=== PATIENT | male | born 2000 | race Caucasian/White ===

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

== ENCOUNTER 2023-03-13 13:14 | Emergency (ER) | payer OTHER ==
[2023-03-13 13:23] VITALS: BP 146/78
[2023-03-13 13:49] LABS: RAPID STREP SCREEN Negative (Negative)
--- NOTE | 2023-03-13 14:36 | ED Physician Documentation ---
History of Present Illness - Stated complaint Stated Complaint: SORE THROAT - Chief complaint Chief Complaint: Heent - Additonal information Additional information: Patient 23-year-old male presenting to the emergency department with fever and sore throat. Symptoms ongoing for the last few days. Endorses for painful swallowing. Denies known sick contacts, cough, chest pain, shortness of breath. Review of Systems Constitutional: reports: Fever Ears: denies: Loss of hearing Throat: reports: Sore throat Respiratory: denies: Dyspnea GI: denies: Abdominal Pain : denies: Dysuria PD PAST MEDICAL HISTORY - Past Surgical History Past Surgical History: No - Present Medications Home Medications: Ambulatory Orders Medication Instructions Recorded Confirmed Clindamycin HCl [Clindamycin 300MG 300 mg PO Q6H #28 capsule 12/30/18 CAP] HYDROcod/ACETAM 5/325 [[place] 5/325] 1 - 2 ea PO Q6H PRN #12 tablet 12/30/18 HYDROcod/ACETAM 5/325 [[place] 5/325] 1 - 2 ea PO Q6H PRN #14 tablet 03/13/23 Menthol [[place]] 7.5 mg MM Q6HR #30 lozenge 03/13/23 - Allergies Allergies/Adverse Reactions: Allergies Allergy/AdvReac Type Severity Reaction Status Date / Time No Known Drug Allergies Allergy Verified 03/13/23 13:23 - Social History Does the pt smoke?: No Smoking Status: Never smoker Does the pt drink ETOH?: No Does the pt have substance abuse?: No - Immunizations Immunizations are current?: Yes - POLST Patient has POLST: No PD ED PE NORMAL - General General: Alert and oriented X 3 - HEENT HEENT: Atraumatic, Other (Enlarged erythematous tonsils with exudates) - Neck Neck: Supple, no meningeal sign - Cardiac Cardiac: RRR - Respiratory Respiratory: No respiratory distress - Abdomen Abdomen: Normal bowel sounds - Male Male : Deferred - Rectal Rectal: Deferred - Back Back: No CVA TTP Results - Vitals Vitals: Oxygen O2 Source Room air - Labs Labs: Microbiology 03/13/23 13:24 Group A Strep Throat Culture - Final Throat MIXED OROPHARYNGEAL MARIANELA PRESENT. NO BETA STREP PRESENT IN CULTURE. Laboratory Tests 03/13/23 13:24 Group A Strep Rapid Negative PD Medical Decision Making - ED course Complexity details: reviewed results, d/w patient ED course: Patient is 23-year-old male presenting to the emergency department with sore throat. Afebrile, hemodynamically stable. Patient appears uncomfortable. Physical exam demonstrates enlarged tonsils with exudates but no appreciable posterior cervical adenopathy, jugular adenopathy, uvular deviation, sublingual elevation or tracheal immobility that would be of imminent concern for deep space neck infection. Mononucleosis is considered as part of the differential and I discussed this with the patient and we discussed blood testing however he would like to avoid this at this time. Encouraged that he avoid strenuous sport or other such activity for at least the next 2 to 4 weeks. Strep pharyngitis swab is negative. He was given dose Decadron in the emergency department as well as a single IM dose morphine for pain control. I have sent medication for pain control to his preferred pharmacy. He was encouraged to follow-up carefully with his primary care doctor or return to the emergency department as needed. Departure - Departure Disposition: 01 Home, Self Care Clinical Impression: Pharyngitis Qualifiers: Pharyngitis/tonsillitis etiology: unspecified etiology Qualified Code(s): J02.9 - Acute pharyngitis, unspecified Prescriptions: Menthol [[place]] 7.5 mg MM Q6HR #30 lozenge HYDROcod/ACETAM 5/325 [[place] 5/325] 1 - 2 ea PO Q6H PRN #14 tablet PRN Reason: Pain Comments: Thank you for allowing us to care for you today at [facility]. Your strep pharyngitis screening swab was negative. As we discussed I will be sending your throat swab for culture and if it does demonstrate bacterial infection we will contact you directly at home to begin antibiotics in the next 1 to 2 days. You Or given a dose of Decadron here in the emergency department help with your sore throat. I have sent a prescription for Vicodin as well as oral throat lozenges to [facility] in [place]. Please use these as directed. Please drink plenty of fluids. This can be difficult in the setting of sore throat however it is important to stay well-hydrated. I do recommend salt water gargles in addition to the above to help with your symptoms. Please make a follow-up appoint with your primary care doctor. If anytime you develop new or worsening symptoms please not hesitate to return. Forms: Activity restrictions Discharge Date/Time: 03/13/23 16:25
[2023-03-13] MEDS ORDERED: CHERRY SYRUP 10 ML UDC PO ONE (16:05)
[2023-03-13] MEDS ORDERED: DEXAMETHASONE 10 MG/ML VIAL PO STA (16:06)
[2023-03-13] MEDS ORDERED: MORPHINE 10 MG/ML VIAL IM STA (16:09)
== END 2023-03-13 16:25 | disposition home or self-care (01) ==
LOC: ED 13:14
DX: J02.9 Acute pharyngitis, unspecified (principal)
CPT/HCPCS: 87070; 87430; 96372; 99283; A9270